=== PATIENT | female | born 1970 | race Caucasian/White ===

== ENCOUNTER → 2017-01-02 | Outpatient (CLI) | payer BC ==
[2017-01-02 14:51] LABS: BLOOD UREA NITROGEN 13 mg/dL (7-22); BUN/CREATININE RATIO 16.25 (6-20); CALCIUM 9.5 mg/dL (8.7-10.7); EST GLOMERULAR FILTRATION > 60 (>60 ml/min/1.73m(2)); SERUM ALBUMIN 4.1 g/dL (3.5-4.8)
[2017-01-02 15:05] LABS: FREE T4 (FREE THYROXINE) 1.06 ng/dL (0.93-1.71)
== END ==
LOC: LAB 09:35
PROVIDERS: ATTEND Physician Assistant Medical
DX: R23.2 Flushing (principal); I10 Essential (primary) hypertension; R51 Headache; F32.9 Major depressive disorder, single episode, unspecified
CPT/HCPCS: 80053; 82652; 84439; 84443; 84481